=== PATIENT | female | born 1960 | race Caucasian/White ===

== ENCOUNTER 2020-09-24 15:22 | Inpatient (IN) | payer BC ==
[2020-09-24] MEDS ORDERED: Sodium Chloride 0.9% 1000 ML 1,000 ML ONE (15:36)
[2020-09-24] MEDS ORDERED: TYLENOL EXTRA STRENGTH 500 MG ONE (15:36)
[2020-09-24] MEDS: TYLENOL EXTRA STRENGTH 500 MG PO PRN ×2 (16:18→21:07)
[2020-09-24] MEDS: Sodium Chloride 0.9% 1000 ML 1,000 ML IV SCH ×2 (16:19→20:47)
[2020-09-24 16:33] LABS: Hematocrit 42.8 % (35-47); Hemoglobin 14.2 gm/dl (12.0-16.0); Mean Cell Volume 87.9 fl (78-100); Mean Corpuscular Hemoglobin 29.2 pg (26-32); Mean Corpuscular Hgb Concent. 33.2 g/dl (32-36); Mean Platelet Volume 11.4 fl (7.5-11.0); Platelet Count 58 K/mm3 (150-450); Red Blood Count 4.87 M/mm3 (4.1-5.4); Red Cell Distribution Width 13.7 % (11.5-14.0); White Blood Count 2.5 K/mm3 (4.0-10.5)
[2020-09-24 16:59] LABS: BAND 11 % (0.0-2.0); Lymphocytes 14 % (24-44); Monocyte 9 % (0.0-12.0); Neutrophils 66 % (36.0-66.0); Total Cells Counted 100
[2020-09-24 17:00] LABS: Platelet Estimate DECREASED (NORMAL)
[2020-09-24 17:01] LABS: Absolute Neutrophil Ct (ANC) 1.94 (1.4-6.9)
--- NOTE | 2020-09-24 17:05 | ERPHSYRPT ---
- History of Present Illness Time Seen by Provider: 09/24/20 15:50 Source: patient Exam Limitations: clinical condition Patient Subjective Stated Complaint: pt states she was dx with covid on sunday and she is now, weak,sob,and not eating well, fever at home, tylenol last at 0430 Triage Nursing Assessment: pt alert, weak, resp labored with movement, face mask in place, skin w/d/p. has dry cough Physician History: Patient is a 60-year-old white female who developed fever chills body aches on Sunday. She had some loss of taste and smell she also was diagnosed with Covid finally on Sunday. She presents now with feeling worse continued fever shortness of breath headache and body aches continue. Timing/Duration: day(s) (7) Fever Severity: severe Fever Therapy COMMUNICATIONS SPECIALIST: Acetaminophen Associated Symptoms: abdominal pain, cough, nausea/vomiting, shortness of breath Allergies/Adverse Reactions: No Known Drug Allergies Allergy (Verified 09/24/20 15:54) Home Medications: PHENobarbitaL [Phenobarbital] 1 ea TID 11/10/15 [History] Hx Tetanus, Diphtheria Vaccination/Date Given: Yes Hx Influenza Vaccination/Date Given: Yes Hx Pneumococcal Vaccination/Date Given: Yes Immunizations Up to Date: Yes Travel Risk - International Travel Have you traveled outside of the country in past 3 weeks: No - Coronavirus Screening Symptoms: Fever, Cough: New Onset, Shortness of Breath, Headaches/Body Aches/Fatigue - Vaccine Status Have you recieved a Covid-19 vaccination: No - Review of Systems Constitutional: Fever, Chills, Lethargy Eyes: No Symptoms Ears, Nose, & Throat: Nose Congestion Respiratory: Cough, Dyspnea, Dyspnea on Exertion ([place]), Wheezing Cardiac: No Symptoms Abdominal/Gastrointestinal: Abdominal Pain, Nausea, Vomiting Genitourinary Symptoms: No Symptoms Musculoskeletal: Back Pain, Neck Pain, Joint Pain Skin: No Symptoms Neurological: Dizziness, Headache Psychological: No Symptoms Endocrine: No Symptoms Hematologic/Lymphatic: No Symptoms - Past Medical History Pertinent Past Medical History: Yes Neurological History: Seizures Other Medical History: SEIZURES - Past Surgical History Past Surgical History: Yes Other Surgical History: MOLES REMOVED - Social History Smoking Status: Never smoker Exposure to second hand smoke: No Drug Use: none Patient Lives Alone: No - Female History Hx Last Menstrual Period: post - Nursing Vital Signs Nursing Vital Signs: Initial Vital Signs Temperature 101.1 F 09/24/20 15:34 Pulse Rate 103 H 09/24/20 15:34 Respiratory Rate 32 H 09/24/20 15:34 Blood Pressure 117/66 09/24/20 15:34 O2 Sat by Pulse Oximetry 95 09/24/20 15:34 Pain Scale Pain Intensity 4 - Physical Exam General Appearance: moderate distress, alert Eye Exam: PERRL/EOMI ENT Exam: normal ENT inspection, No pharyngeal erythema, No tonsillar exudate Neck Exam: supple, full range of motion, No meningismus Respiratory Exam: lungs clear, decreased breath sounds, respiratory distress, decreased air movement, crackles/rales Cardiovascular/Chest Exam: normal heart sounds, regular rate/rhythm, No murmur, No edema Gastrointestinal/Abdominal Exam: soft, non tender, no distention Extremity Exam: non-tender, normal range of motion, normal inspection, normal capillary refill Neurologic Exam: alert, oriented x 3, cooperative, tile helper II-XII nml as tested, normal mood/affect, sensation nml, No motor deficits Skin Exam: normal color, warm, dry, No rash SpO2: 94 - Course EKG Interpreted by Me: RATE (98), Sinus Rhythm, NORMAL AXIS, NORMAL INTERVALS, NORMAL QRS - CT Exams Chest CT Interpretation: Other (He shows no PE the evaluation is a little limited by respiratory artifact no obvious central PE diffuse bilateral patchy airspace disease small hiatal hernia and fatty liver by Dr. Arias.) Ordered Tests: Active Orders 24 hr Category Date Time Status EKG-ER Only STAT Care 09/24/20 15:59 Active IV Insertion STAT Care 09/24/20 15:59 Active CHEST WITH CONTRAST [CT] Stat Exams 09/24/20 17:46 Taken BLOOD CULTURE Stat Lab 09/24/20 16:16 Received CBC W DIFF Stat Lab 09/24/20 16:14 Completed CMP Stat Lab 09/24/20 16:14 Completed CULTURE,URINE Stat Lab 09/24/20 16:41 Received D-DIMER QUANTITATIVE Stat Lab 09/24/20 16:16 Completed Hepatic Function Panel Stat Lab 09/24/20 16:14 Completed Lactic Acid Stat Lab 09/24/20 15:59 Completed MAGNESIUM Stat Lab 09/24/20 16:14 Completed Manual Differential NC Stat Lab 09/24/20 16:14 Completed PROTIME WITH INR Stat Lab 09/24/20 16:16 Completed TROPONIN Q3H Lab 09/24/20 16:14 Completed TROPONIN Q3H Lab 09/24/20 19:00 Ordered TROPONIN Q3H Lab 09/24/20 22:00 Ordered TROPONIN Q3H Lab 09/25/20 01:00 Ordered TROPONIN Q3H Lab 09/25/20 04:00 Ordered UA W/RFX UR CULTURE Stat Lab 09/24/20 16:41 Completed Medication Summary Generic Name Dose Route Start Last Admin Trade Name Freq PRN Reason Stop Dose Admin Acetaminophen 1,000 mg 09/24/20 16:17 09/24/20 16:18 Tylenol Extra Strength 500 Mg PO 10/24/20 16:16 1,000 mg Q4H PRN PRN Administration HEADACHE Sodium Chloride 1,000 mls @ 100 mls/hr 09/24/20 16:00 09/24/20 16:19 Sodium Chloride 0.9% 1000 Ml IV 10/24/20 15:59 100 mls/hr .Q10H VALENTINE Administration Discontinued Medications Generic Name Dose Route Start Last Admin Trade Name Freq PRN Reason Stop Dose Admin Acetaminophen Confirm 09/24/20 15:36 Tylenol Extra Strength 500 Mg Administered 09/24/20 15:37 Dose 1,000 mg .ROUTE .STK-MED ONE Sodium Chloride Confirm 09/24/20 15:36 Sodium Chloride 0.9% 1000 Ml Administered 09/24/20 15:37 Dose 1,000 mls @ ud .ROUTE .STK-MED ONE Lab/Rad Data: Laboratory Result Diagrams 09/24/20 16:14 09/24/20 16:14 Laboratory Results 09/24/20 09/24/20 09/24/20 Range/Units 16:41 16:16 16:14 WBC (4.0-10.5) K/mm3 RBC (4.1-5.4) M/mm3 Hgb (12.0-16.0) gm/dl Hct (35-47) % MCV (78-100) fl MCH (26-32) pg MCHC (32-36) g/dl RDW (11.5-14.0) % Plt Count (150-450) K/mm3 MPV (7.5-11.0) fl Absolute Granulocytes (1.4-6.9) Segmented Neutrophils (36.0-66.0) % Band Neutrophils (0.0-2.0) % Lymphocytes (Manual) (24-44) % Monocytes (Manual) (0.0-12.0) % Platelet Estimate (NORMAL) RBC Morphology PT 14.7 H (9.4-12.5) SECONDS INR 1.25 (0.8-3.0) D-Dimer 944 H* (215-500) ng/mL Sodium (137-145) mmol/L Potassium (3.5-5.1) mmol/L Chloride (98-107) mmol/L Carbon Dioxide (22-30) mmol/L Anion Gap (5-15) MEQ/L BUN (7-17) mg/dL Creatinine (0.52-1.04) mg/dL Estimated GFR ML/MIN Glucose (74-106) mg/dL Lactic Acid (0.4-2.0) Calcium (8.4-10.2) mg/dL Magnesium (1.6-2.3) mg/dL Total Bilirubin (0.2-1.3) mg/dL Direct Bilirubin (0.0-0.4) mg/dL AST (14-36) U/L ALT (0-35) U/L Alkaline Phosphatase (38-126) U/L Troponin I < 0.012 (0.000-0.034) ng/mL Serum Total Protein (6.3-8.2) g/dL Albumin (3.5-5.0) g/dL Urine Color RIAZ (YELLOW) Urine Appearance CLOUDY (CLEAR) Urine pH 5.0 (5-6) Ur Specific [place] 1.030 (1.005-1.025) Urine Protein 100 (Negative) Urine Ketones SMALL (NEGATIVE) Urine Blood MODERATE (0-5) Emir/ul Urine Nitrite NEGATIVE (NEGATIVE) Urine Bilirubin NEGATIVE (NEGATIVE) Urine Urobilinogen 4 (0-1) mg/dL Ur Leukocyte Esterase NEGATIVE (NEGATIVE) Urine WBC (Auto) 3-5 (0-5) /HPF Urine RBC (Auto) NONE (0-2) /HPF U Hyaline Cast (Auto) 0-2 (0-2) /LPF U Epithel Cells (Auto) NONE (FEW) /HPF Urine Bacteria (Auto) MODERATE (NEGATIVE) /HPF Urine Mucus (Auto) MANY (NEGATIVE) /HPF Urine Culture Reflexed YES (NO) Urine Glucose NEGATIVE (NEGATIVE) mg/dL 09/24/20 09/24/20 09/24/20 Range/Units 16:14 16:14 15:59 WBC 2.5 L (4.0-10.5) K/mm3 RBC 4.87 (4.1-5.4) M/mm3 Hgb 14.2 (12.0-16.0) gm/dl Hct 42.8 (35-47) % MCV 87.9 (78-100) fl MCH 29.2 (26-32) pg MCHC 33.2 (32-36) g/dl RDW 13.7 (11.5-14.0) % Plt Count 58 L (150-450) K/mm3 MPV 11.4 H (7.5-11.0) fl Absolute Granulocytes 1.94 (1.4-6.9) Segmented Neutrophils 66 (36.0-66.0) % Band Neutrophils 11 H (0.0-2.0) % Lymphocytes (Manual) 14 L (24-44) % Monocytes (Manual) 9 (0.0-12.0) % Platelet Estimate DECREASED (NORMAL) RBC Morphology NORMAL PT (9.4-12.5) SECONDS INR (0.8-3.0) D-Dimer (215-500) ng/mL Sodium 130 L (137-145) mmol/L Potassium 3.6 (3.5-5.1) mmol/L Chloride 94 L (98-107) mmol/L Carbon Dioxide 23 (22-30) mmol/L Anion Gap 16.1 H (5-15) MEQ/L BUN 14 (7-17) mg/dL Creatinine 1.04 (0.52-1.04) mg/dL Estimated GFR 57.6 ML/MIN Glucose 128 H (74-106) mg/dL Lactic Acid 1.8 (0.4-2.0) Calcium 8.3 L (8.4-10.2) mg/dL Magnesium 2.2 (1.6-2.3) mg/dL Total Bilirubin 0.40 (0.2-1.3) mg/dL Direct Bilirubin 0.2 (0.0-0.4) mg/dL AST 58 H (14-36) U/L ALT 27 (0-35) U/L Alkaline Phosphatase 82 (38-126) U/L Troponin I (0.000-0.034) ng/mL Serum Total Protein 7.4 (6.3-8.2) g/dL Albumin 4.0 (3.5-5.0) g/dL Urine Color (YELLOW) Urine Appearance (CLEAR) Urine pH (5-6) Ur Specific [place] (1.005-1.025) Urine Protein (Negative) Urine Ketones (NEGATIVE) Urine Blood (0-5) Emir/ul Urine Nitrite (NEGATIVE) Urine Bilirubin (NEGATIVE) Urine Urobilinogen (0-1) mg/dL Ur Leukocyte Esterase (NEGATIVE) Urine WBC (Auto) (0-5) /HPF Urine RBC (Auto) (0-2) /HPF U Hyaline Cast (Auto) (0-2) /LPF U Epithel Cells (Auto) (FEW) /HPF Urine Bacteria (Auto) (NEGATIVE) /HPF Urine Mucus (Auto) (NEGATIVE) /HPF Urine Culture Reflexed (NO) Urine Glucose (NEGATIVE) mg/dL - Progress Progress: unchanged Will see patient in: hospital (full admit) - Departure Departure Disposition: In-patient Admission Clinical Impression: COVID-19 Condition: Fair Critical Care Time: Yes Critical Care Time(excluding separately billable procedures): Critical 30-74 mins Referrals: ANAI GE MD [Primary Care Provider] -
[2020-09-24 17:10] LABS: INR 1.25 (0.8-3.0); PROTIME 14.7 SECONDS (9.4-12.5)
[2020-09-24 17:18] LABS: ANION GAP 16.1 MEQ/L (5-15); BILIRUBIN,TOTAL 0.4 mg/dL (0.2-1.3); Calcium 8.3 mg/dL (8.4-10.2); Creatinine 1 1.04 mg/dL (0.52-1.04); Direct Bilirubin 0.2 mg/dL (0.0-0.4); EST GLOMERULAR FILTRATION RATE 57.6 ML/MIN; MAGNESIUM 2.2 mg/dL (1.6-2.3); Potassium 3.6 mmol/L (3.5-5.1); Total Protein 7.4 g/dL (6.3-8.2)
[2020-09-24 17:31] LABS: Appearance CLOUDY (CLEAR); Bacteria MODERATE /HPF (NEGATIVE); Bilirubin NEGATIVE (NEGATIVE); Blood MODERATE Ery/ul (0-5); Glucose NEGATIVE (NEGATIVE); Hyaline Casts 0-2 /LPF (0-2); Ketones SMALL (NEGATIVE); Leukocyte Esterase NEGATIVE (NEGATIVE); Mucus MANY /HPF (NEGATIVE); Nitrite NEGATIVE (NEGATIVE); Protein,Urine Dip 100 (Negative); Urobilinogen 4 mg/dL (0-1)
[2020-09-24] MEDS ORDERED: DECADRON 10MG INJ. ONE (20:44)
[2020-09-24] MEDS: Decadron 4 MG INJ IV SCH (20:45)
[2020-09-24] MEDS ORDERED: TYLENOL 325 MG ONE (21:05)
[2020-09-24 22:35] LABS: Appearance SLIGHTLY CLOUDY (CLEAR); Bacteria MODERATE /HPF (NEGATIVE); Bilirubin NEGATIVE (NEGATIVE); Blood SMALL Ery/ul (0-5); Glucose NEGATIVE (NEGATIVE); Ketones SMALL (NEGATIVE); Leukocyte Esterase NEGATIVE (NEGATIVE); Mucus SLIGHT /HPF (NEGATIVE); Nitrite POSITIVE (NEGATIVE); Protein,Urine Dip 100 (Negative); RBC 0-2 /HPF (0-2); Specific Gravity >1.060 (1.005-1.025); Urobilinogen 4 mg/dL (0-1); WBC 0-2 /HPF (0-5)
--- NOTE | 2020-09-24 22:39 | XRAY ---
Indication: Short of breath, cough, nausea, vomiting, diarrhea, and fever. Covid 19. Multiple contiguous axial images obtained through the chest using 100 cc Isovue-370 contrast and PE protocol. Comparison: None There is good opacification of the pulmonary arteries. However respiration artifact limits evaluation for distal lobar and segmental branches. No central pulmonary embolus. Heart is not enlarged. Aorta is normal in course and caliber. No pathologic mediastinal/hilar lymphadenopathy. Small hiatal hernia. Lungs demonstrate diffuse viral patchy airspace disease. No suspicious pulmonary mass, nodule, or effusion. Bony thorax is intact. Limited upper abdomen demonstrates fatty liver. Impression: 1. Pulmonary embolus evaluation limited by respiration artifact. No obvious central pulmonary embolus. 2. Diffuse bilateral patchy airspace disease. 3. Incidental small hiatal hernia and fatty liver.
[2020-09-25] MEDS ORDERED: TYLENOL EXTRA STRENGTH 500 MG ONE (05:56)
[2020-09-25] MEDS: TYLENOL EXTRA STRENGTH 500 MG PO PRN ×3 (05:57→21:54)
[2020-09-25 06:05] LABS: Hematocrit 38.6 % (35-47); Hemoglobin 12.7 gm/dl (12.0-16.0); Mean Cell Volume 88.7 fl (78-100); Mean Corpuscular Hemoglobin 29.2 pg (26-32); Mean Corpuscular Hgb Concent. 32.9 g/dl (32-36); Mean Platelet Volume 11.3 fl (7.5-11.0); Platelet Count 52 K/mm3 (150-450); Red Blood Count 4.35 M/mm3 (4.1-5.4); Red Cell Distribution Width 13.7 % (11.5-14.0)
[2020-09-25 06:51] LABS: ALBUMIN 3.6 g/dL (3.5-5.0); ALKALINE PHOSPHATASE 65 U/L (38-126); ANION GAP 15.2 MEQ/L (5-15); BLOOD UREA NITROGEN 11 mg/dL (7-17); CHLORIDE 98 mmol/L (98-107); Calcium 7.9 mg/dL (8.4-10.2); Carbon Dioxide 22 mmol/L (22-30); Creatinine 1 0.84 mg/dL (0.52-1.04); EST GLOMERULAR FILTRATION RATE > 60.0 ML/MIN; Glucose 119 mg/dL (74-106); Potassium 4.1 mmol/L (3.5-5.1); SGOT/AST 51 U/L (14-36); SGPT/ALT 25 U/L (0-35); SODIUM 131 mmol/L (137-145); Total Protein 6.7 g/dL (6.3-8.2)
[2020-09-25] MEDS ORDERED: Sodium Chloride 0.9% 1000 ML 1,000 ML ONE (07:15)
[2020-09-25] MEDS ORDERED: REMDESIVIR 200 MG in Sodium Chloride 0.9% 250 ML 250 ML IV ONE (07:36)
[2020-09-25] MEDS: Sodium Chloride 0.9% 1000 ML 1,000 ML IV SCH ×2 (08:04→21:10)
[2020-09-25] MEDS: Decadron 4 MG INJ IV SCH ×2 (09:35→21:09)
[2020-09-25] MEDS: ENOXAPARIN SODIUM SQ SCH ×2 (09:36→21:10)
[2020-09-25] MEDS ORDERED: PHENOBARBITAL PO SCH (10:00)
[2020-09-25] MEDS ORDERED: PHENOBARBITAL 32.4 MG PO SCH (10:00)
[2020-09-25] MEDS: ROCEPHIN 1 Gm-D5w 50 ml Bag** 1 G/50 ML IVPB IV SCH (10:30)
[2020-09-25] MEDS: Zithromax 500 MG/ 250 ML NaCl Premix 500 MG/250 ML IVPB IV SCH (11:00)
[2020-09-25] MEDS ORDERED: Zofran 4 MG/2 ML VIAL IV PRN (12:07)
[2020-09-25] MEDS: VENTOLIN COMMON CANISTER IH PRN (16:19)
--- NOTE | 2020-09-25 17:25 | PCM.HP ---
History of Present Illness - Chief Complaint Chief Complaint: COVID Date: 09/25/20 History of Present Illness: is a 60 year old female. Diagnosed with COVID Sunday, presented to ER with no appetite. Pt. notes fever of 103, and persistent diarrhea and mil d cough with sob on exertion. - Review of Systems Constitutional: Fever, Chills, Malaise Eyes: No Symptoms Ears, Nose, & Throat: No Symptoms Respiratory: Cough, Short Of Breath Cardiac: No Symptoms Abdominal/Gastrointestinal: Nausea, Diarrhea Genitourinary Symptoms: No Symptoms Musculoskeletal: No Symptoms, Arthralgias Skin: No Symptoms Neurological: No Symptoms Psychological: No Symptoms Endocrine: No Symptoms Hematologic/Lymphatic: No Symptoms Immunological/Allergic: No Symptoms Medications & Allergies Home Medications: Home Medication List PHENobarbitaL [Phenobarbital] 3 tab PO DAILY 11/10/15 [History Confirmed 09/25/20] Allergies/Adverse Reactions: Allergies Allergy/AdvReac Type Severity Reaction Status Date / Time No Known Drug Allergies Allergy Verified 09/24/20 15:54 - Past Medical History Past Medical History: Yes Neurological History: Seizures ENT History: No Pertinent History Cardiac History: No Pertinent History Respiratory History: No Pertinent History Endocrine Medical History: No Pertinent History Musculoskelatal History: No Pertinent History GI Medical History: No Pertinent History History: No Pertinent History Pyscho-Social History: No Pertinent History Reproductive Disorders: No Pertinent History Comment: SEIZURES-LAST SEIZURE YEARS AGO, PT DOES NOT REMEMBER THE YEAR - Female History Hx Last Menstrual Period: POST MENOPAUSE - Past Surgical History Past Surgical History: Yes Other Surgical History: MOLES REMOVED - Social History Smoking Status: Never smoker Exposure to second hand smoke: No Alcohol: None Drug Use: none - Physical Exam Vital Signs: Vital Signs - 24 hr Temp Pulse Resp BP Pulse Ox 09/25/20 16:28 100.8 F 09/25/20 16:21 91 H 24 92 L 09/25/20 15:54 102.5 F 95 H 26 H 119/66 92 L 09/25/20 14:00 94 H 26 H 92 L 09/25/20 11:49 99.4 F 96 H 20 122/66 90 L 09/25/20 10:52 91 L 09/25/20 10:00 85 18 91 L 09/25/20 08:00 99.1 F 87 23 112/64 91 L 09/25/20 06:44 99.7 F 09/25/20 06:00 101.3 F 90 20 109/65 91 L 09/25/20 04:00 99.0 F 89 18 115/67 92 L 09/25/20 02:00 99.2 F 86 20 118/68 91 L 09/25/20 00:00 99.3 F 82 18 115/66 92 L 09/24/20 22:00 18 09/24/20 21:36 101.3 F 91 H 18 114/52 93 L 09/24/20 21:15 99.5 F 88 18 106/59 92 L 09/24/20 20:37 93 L 09/24/20 20:33 86 18 93 L 09/24/20 19:55 88 92 L 09/24/20 19:03 89 24 117/67 95 09/24/20 18:51 94 L 09/24/20 17:21 93 H 23 107/65 92 L Oxygen-Last 24 hours Oxygen Flowrate (L/min)-RT 2 Oxygen Flowrate (L/min)-RT 2 General Appearance: no apparent distress Neurologic Exam: alert, cooperative Eye Exam: eyes nml inspection Ears, Nose, Throat Exam: normal ENT inspection Neck Exam: normal inspection, non-tender, supple Respiratory Exam: lungs clear, wheezing, No respiratory distress Cardiovascular Exam: regular rate/rhythm, normal heart sounds Gastrointestinal/Abdomen Exam: soft, normal bowel sounds, No tenderness, No distention, No guarding Pelvic Exam: not done Rectal Exam: deferred Extremity Exam: normal inspection, normal range of motion, pelvis stable Skin Exam: normal color, warm, dry, No rash, No petechiae Lymphatic Exam: No adenopathy Results - Labs Lab/Micro Results: Lab Results-Last 24 Hours 09/24/20 09/24/20 09/24/20 Range/Units 16:14 16:14 16:16 WBC (4.0-10.5) K/mm3 RBC (4.1-5.4) M/mm3 Hgb (12.0-16.0) gm/dl Hct (35-47) % MCV (78-100) fl MCH (26-32) pg MCHC (32-36) g/dl RDW (11.5-14.0) % Plt Count (150-450) K/mm3 MPV (7.5-11.0) fl PT 14.7 H (9.4-12.5) SECONDS INR 1.25 (0.8-3.0) D-Dimer 944 H* (215-500) ng/mL Sodium 130 L (137-145) mmol/L Potassium 3.6 (3.5-5.1) mmol/L Chloride 94 L (98-107) mmol/L Carbon Dioxide 23 (22-30) mmol/L Anion Gap 16.1 H (5-15) MEQ/L BUN 14 (7-17) mg/dL Creatinine 1.04 (0.52-1.04) mg/dL Estimated GFR 57.6 ML/MIN Glucose 128 H (74-106) mg/dL Lactic Acid (0.4-2.0) Calcium 8.3 L (8.4-10.2) mg/dL Magnesium 2.2 (1.6-2.3) mg/dL Total Bilirubin 0.40 (0.2-1.3) mg/dL Direct Bilirubin 0.2 (0.0-0.4) mg/dL AST 58 H (14-36) U/L ALT 27 (0-35) U/L Alkaline Phosphatase 82 (38-126) U/L Troponin I < 0.012 (0.000-0.034) ng/mL Serum Total Protein 7.4 (6.3-8.2) g/dL Albumin 4.0 (3.5-5.0) g/dL Urine Color (YELLOW) Urine Appearance (CLEAR) Urine pH (5-6) Ur Specific [place] (1.005-1.025) Urine Protein (Negative) Urine Ketones (NEGATIVE) Urine Blood (0-5) Emir/ul Urine Nitrite (NEGATIVE) Urine Bilirubin (NEGATIVE) Urine Urobilinogen (0-1) mg/dL Ur Leukocyte Esterase (NEGATIVE) Urine WBC (Auto) (0-5) /HPF Urine RBC (Auto) (0-2) /HPF U Hyaline Cast (Auto) (0-2) /LPF U Epithel Cells (Auto) (FEW) /HPF Urine Bacteria (Auto) (NEGATIVE) /HPF Urine Mucus (Auto) (NEGATIVE) /HPF Urine Culture Reflexed (NO) Urine Glucose (NEGATIVE) mg/dL 09/24/20 09/24/2009/24/21 Range/Units 16:41 18:58 19:55 WBC (4.0-10.5) K/mm3 RBC (4.1-5.4) M/mm3 Hgb (12.0-16.0) gm/dl Hct (35-47) % MCV (78-100) fl MCH (26-32) pg MCHC (32-36) g/dl RDW (11.5-14.0) % Plt Count (150-450) K/mm3 MPV (7.5-11.0) fl PT (9.4-12.5) SECONDS INR (0.8-3.0) D-Dimer (215-500) ng/mL Sodium (137-145) mmol/L Potassium (3.5-5.1) mmol/L Chloride (98-107) mmol/L Carbon Dioxide (22-30) mmol/L Anion Gap (5-15) MEQ/L BUN (7-17) mg/dL Creatinine (0.52-1.04) mg/dL Estimated GFR ML/MIN Glucose (74-106) mg/dL Lactic Acid (0.4-2.0) Calcium (8.4-10.2) mg/dL Magnesium (1.6-2.3) mg/dL Total Bilirubin (0.2-1.3) mg/dL Direct Bilirubin (0.0-0.4) mg/dL AST (14-36) U/L ALT (0-35) U/L Alkaline Phosphatase (38-126) U/L Troponin I < 0.012 (0.000-0.034) ng/mL Serum Total Protein (6.3-8.2) g/dL Albumin (3.5-5.0) g/dL Urine Color RIAZ YELLOW (YELLOW) Urine Appearance CLOUDY SLIGHTLY CLOUDY (CLEAR) Urine pH 5.0 5.0 (5-6) Ur Specific [place] 1.030 >1.060 (1.005-1.025) Urine Protein 100 100 (Negative) Urine Ketones SMALL SMALL (NEGATIVE) Urine Blood MODERATE SMALL (0-5) Emir/ul Urine Nitrite NEGATIVE POSITIVE (NEGATIVE) Urine Bilirubin NEGATIVE NEGATIVE (NEGATIVE) Urine Urobilinogen 4 4 (0-1) mg/dL Ur Leukocyte Esterase NEGATIVE NEGATIVE (NEGATIVE) Urine WBC (Auto) 3-5 0-2 (0-5) /HPF Urine RBC (Auto) NONE 0-2 (0-2) /HPF U Hyaline Cast (Auto) 0-2 (0-2) /LPF U Epithel Cells (Auto) NONE NONE (FEW) /HPF Urine Bacteria (Auto) MODERATE MODERATE (NEGATIVE) /HPF Urine Mucus (Auto) MANY SLIGHT (NEGATIVE) /HPF Urine Culture Reflexed YES ORDERED SEPARATELY (NO) Urine Glucose NEGATIVE NEGATIVE (NEGATIVE) mg/dL 09/24/20 09/25/20 09/25/20 Range/Units 21:48 05:50 05:50 WBC 2.0 L (4.0-10.5) K/mm3 RBC 4.35 (4.1-5.4) M/mm3 Hgb 12.7 (12.0-16.0) gm/dl Hct 38.6 (35-47) % MCV 88.7 (78-100) fl MCH 29.2 (26-32) pg MCHC 32.9 (32-36) g/dl RDW 13.7 (11.5-14.0) % Plt Count 52 L (150-450) K/mm3 MPV 11.3 H (7.5-11.0) fl PT (9.4-12.5) SECONDS INR (0.8-3.0) D-Dimer (215-500) ng/mL Sodium 131 L (137-145) mmol/L Potassium 4.1 (3.5-5.1) mmol/L Chloride 98 (98-107) mmol/L Carbon Dioxide 22 (22-30) mmol/L Anion Gap 15.2 H (5-15) MEQ/L BUN 11 (7-17) mg/dL Creatinine 0.84 (0.52-1.04) mg/dL Estimated GFR > 60.0 ML/MIN Glucose 119 H (74-106) mg/dL Lactic Acid (0.4-2.0) Calcium 7.9 L (8.4-10.2) mg/dL Magnesium (1.6-2.3) mg/dL Total Bilirubin 0.30 (0.2-1.3) mg/dL Direct Bilirubin (0.0-0.4) mg/dL AST 51 H (14-36) U/L ALT 25 (0-35) U/L Alkaline Phosphatase 65 (38-126) U/L Troponin I < 0.012 (0.000-0.034) ng/mL Serum Total Protein 6.7 (6.3-8.2) g/dL Albumin 3.6 (3.5-5.0) g/dL Urine Color (YELLOW) Urine Appearance (CLEAR) Urine pH (5-6) Ur Specific [place] (1.005-1.025) Urine Protein (Negative) Urine Ketones (NEGATIVE) Urine Blood (0-5) Emir/ul Urine Nitrite (NEGATIVE) Urine Bilirubin (NEGATIVE) Urine Urobilinogen (0-1) mg/dL Ur Leukocyte Esterase (NEGATIVE) Urine WBC (Auto) (0-5) /HPF Urine RBC (Auto) (0-2) /HPF U Hyaline Cast (Auto) (0-2) /LPF U Epithel Cells (Auto) (FEW) /HPF Urine Bacteria (Auto) (NEGATIVE) /HPF Urine Mucus (Auto) (NEGATIVE) /HPF Urine Culture Reflexed (NO) Urine Glucose (NEGATIVE) mg/dL 09/25/20 Range/Units 05:55 WBC (4.0-10.5) K/mm3 RBC (4.1-5.4) M/mm3 Hgb (12.0-16.0) gm/dl Hct (35-47) % MCV (78-100) fl MCH (26-32) pg MCHC (32-36) g/dl RDW (11.5-14.0) % Plt Count (150-450) K/mm3 MPV (7.5-11.0) fl PT (9.4-12.5) SECONDS INR (0.8-3.0) D-Dimer (215-500) ng/mL Sodium (137-145) mmol/L Potassium (3.5-5.1) mmol/L Chloride (98-107) mmol/L Carbon Dioxide (22-30) mmol/L Anion Gap (5-15) MEQ/L BUN (7-17) mg/dL Creatinine (0.52-1.04) mg/dL Estimated GFR ML/MIN Glucose (74-106) mg/dL Lactic Acid 1.4 (0.4-2.0) Calcium (8.4-10.2) mg/dL Magnesium (1.6-2.3) mg/dL Total Bilirubin (0.2-1.3) mg/dL Direct Bilirubin (0.0-0.4) mg/dL AST (14-36) U/L ALT (0-35) U/L Alkaline Phosphatase (38-126) U/L Troponin I (0.000-0.034) ng/mL Serum Total Protein (6.3-8.2) g/dL Albumin (3.5-5.0) g/dL Urine Color (YELLOW) Urine Appearance (CLEAR) Urine pH (5-6) Ur Specific [place] (1.005-1.025) Urine Protein (Negative) Urine Ketones (NEGATIVE) Urine Blood (0-5) Emir/ul Urine Nitrite (NEGATIVE) Urine Bilirubin (NEGATIVE) Urine Urobilinogen (0-1) mg/dL Ur Leukocyte Esterase (NEGATIVE) Urine WBC (Auto) (0-5) /HPF Urine RBC (Auto) (0-2) /HPF U Hyaline Cast (Auto) (0-2) /LPF U Epithel Cells (Auto) (FEW) /HPF Urine Bacteria (Auto) (NEGATIVE) /HPF Urine Mucus (Auto) (NEGATIVE) /HPF Urine Culture Reflexed (NO) Urine Glucose (NEGATIVE) mg/dL Microbiology 09/24/20 16:41 Urine Culture - Preliminary Catherized GRAM NEGATIVE ID AND SENSITIVITY PENDING - Radiology Impressions Radiology Exams & Impressions: Radiology Procedures Category Date Time Status CHEST 1 VIEW (PORTABLE) Routine Exams 09/25/20 07:00 Taken CHEST WITH CONTRAST [CT] Stat Exams 09/24/20 17:46 Completed - Other Procedures and Tests Respiratory Therapy 09/24/20 20:33 Respiratory Therapy Assessment DAILY 09/25/20 16:19 Oxygen Nasal Cannula 2 lpm Assessment/Plan (1) COVID-19 Current Visit: Yes Status: Acute Assessment & Plan: Pt. will be started on ivf, iv antibiotics, iv remdesivir, iv decadron, and lovenox. Oxygen supplementation as needed. Code(s): U07.1 - COVID-19
--- NOTE | 2020-09-25 20:13 | XRAY ---
Indication: Covid 19. Comparison: August 27, 2015. Portable chest demonstrates new bilateral patchy airspace disease without consolidation/large effusion. Heart not enlarged. Bony thorax intact. Comment: Preliminary interpretation was made by [facility]. No critical discrepancy.
[2020-09-25] MEDS: PHENOBARBITAL 32.4 MG PO SCH (21:10)
[2020-09-26] MEDS: Sodium Chloride 0.9% 1000 ML 1,000 ML IV SCH (06:02)
[2020-09-26 06:23] LABS: Hematocrit 36.8 % (35-47); Mean Cell Volume 89.3 fl (78-100); Mean Corpuscular Hemoglobin 29.1 pg (26-32); Mean Corpuscular Hgb Concent. 32.6 g/dl (32-36); Mean Platelet Volume 10.3 fl (7.5-11.0); Platelet Count 38 K/mm3 (150-450); Red Blood Count 4.12 M/mm3 (4.1-5.4); Red Cell Distribution Width 13.9 % (11.5-14.0)
[2020-09-26 06:30] LABS: ANION GAP 11.3 MEQ/L (5-15); BLOOD UREA NITROGEN 9 mg/dL (7-17); CHLORIDE 103 mmol/L (98-107); Calcium 7.7 mg/dL (8.4-10.2); Carbon Dioxide 22 mmol/L (22-30); Creatinine 1 0.67 mg/dL (0.52-1.04); EST GLOMERULAR FILTRATION RATE > 60.0 ML/MIN; Glucose 105 mg/dL (74-106); Potassium 3.9 mmol/L (3.5-5.1); SODIUM 133 mmol/L (137-145)
[2020-09-26 07:30] LABS: White Blood Count 1.7 K/mm3 (4.0-10.5)
[2020-09-26] MEDS: REMDESIVIR 100 MG in Sodium Chloride 0.9% 100 ML BAG 100 ML IV SCH (07:50)
[2020-09-26] MEDS: Decadron 4 MG INJ IV SCH ×2 (10:14→21:07)
[2020-09-26] MEDS: ROCEPHIN 1 Gm-D5w 50 ml Bag** 1 G/50 ML IVPB IV SCH (10:14)
[2020-09-26] MEDS: VENTOLIN COMMON CANISTER IH PRN ×2 (10:26→19:47)
[2020-09-26] MEDS: Zithromax 500 MG/ 250 ML NaCl Premix 500 MG/250 ML IVPB IV SCH (10:58)
[2020-09-26] MEDS ORDERED: Lasix 20 MG/2 ML IV ONE (11:14)
[2020-09-26 11:26] LABS: ANISOCYTOSIS 1+; BAND 1 % (0.0-2.0); Lymphocytes 35 % (24-44); Monocyte 6 % (0.0-12.0); Neutrophils 58 % (36.0-66.0); Platelet Estimate DECREASED (NORMAL); Total Cells Counted 100
[2020-09-26] MEDS: PHENOBARBITAL 32.4 MG PO SCH (21:07)
[2020-09-27 05:39] LABS: Hematocrit 37.6 % (35-47); Hemoglobin 12.1 gm/dl (12.0-16.0); Mean Cell Volume 89.3 fl (78-100); Mean Corpuscular Hemoglobin 28.7 pg (26-32); Mean Corpuscular Hgb Concent. 32.2 g/dl (32-36); Mean Platelet Volume 11.6 fl (7.5-11.0); Platelet Count 58 K/mm3 (150-450); Red Blood Count 4.21 M/mm3 (4.1-5.4)
[2020-09-27 05:44] LABS: White Blood Count 1.7 K/mm3 (4.0-10.5)
[2020-09-27 06:20] LABS: BLOOD UREA NITROGEN 11 mg/dL (7-17); CHLORIDE 99 mmol/L (98-107); Calcium 8.2 mg/dL (8.4-10.2); Carbon Dioxide 25 mmol/L (22-30); Creatinine 1 0.65 mg/dL (0.52-1.04); EST GLOMERULAR FILTRATION RATE > 60.0 ML/MIN; Glucose 123 mg/dL (74-106); Potassium 3.7 mmol/L (3.5-5.1); SODIUM 133 mmol/L (137-145)
[2020-09-27 06:47] LABS: Lymphocytes 24 % (24-44); Monocyte 28 % (0.0-12.0); Neutrophils 48 % (36.0-66.0); Total Cells Counted 100
[2020-09-27 06:48] LABS: Platelet Estimate NORMAL (NORMAL)
[2020-09-27] MEDS: REMDESIVIR 100 MG in Sodium Chloride 0.9% 100 ML BAG 100 ML IV SCH (08:23)
[2020-09-27] MEDS ORDERED: ENOXAPARIN SODIUM SQ SCH (10:00)
[2020-09-27] MEDS: ROCEPHIN 1 Gm-D5w 50 ml Bag** 1 G/50 ML IVPB IV SCH (11:22)
[2020-09-27] MEDS: Zithromax 500 MG/ 250 ML NaCl Premix 500 MG/250 ML IVPB IV SCH (11:22)
[2020-09-27] MEDS: ENOXAPARIN SODIUM SQ SCH (11:34)
[2020-09-27] MEDS: Decadron 4 MG INJ IV SCH (11:34)
[2020-09-27] MEDS: VENTOLIN COMMON CANISTER IH PRN ×2 (11:45→18:35)
[2020-09-27] MEDS: PHENOBARBITAL 32.4 MG PO SCH (21:02)
[2020-09-27] MEDS: DECADRON 10MG INJ. IV SCH (21:02)
[2020-09-28] MEDS: VENTOLIN COMMON CANISTER IH PRN ×5 (02:35→20:59)
[2020-09-28] MEDS: REMDESIVIR 100 MG in Sodium Chloride 0.9% 100 ML BAG 100 ML IV SCH (06:32)
[2020-09-28 08:51] LABS: Hematocrit 38.7 % (35-47); Hemoglobin 12.5 gm/dl (12.0-16.0); Mean Cell Volume 89.6 fl (78-100); Mean Corpuscular Hemoglobin 28.9 pg (26-32); Mean Corpuscular Hgb Concent. 32.3 g/dl (32-36); Mean Platelet Volume 11.2 fl (7.5-11.0); Platelet Count 81 K/mm3 (150-450); Red Blood Count 4.32 M/mm3 (4.1-5.4)
[2020-09-28 09:51] LABS: Lymphocytes 49 % (24-44); Monocyte 4 % (0.0-12.0); Neutrophils 47 % (36.0-66.0); Total Cells Counted 100
[2020-09-28 09:52] LABS: Platelet Estimate DECREASED (NORMAL)
[2020-09-28] MEDS: DECADRON 10MG INJ. IV SCH ×2 (10:01→21:13)
[2020-09-28] MEDS: ENOXAPARIN SODIUM SQ SCH (10:01)
[2020-09-28 10:15] LABS: ALBUMIN 3.5 g/dL (3.5-5.0); ALKALINE PHOSPHATASE 75 U/L (38-126); ANION GAP 11.3 MEQ/L (5-15); BLOOD UREA NITROGEN 8 mg/dL (7-17); CHLORIDE 98 mmol/L (98-107); Calcium 8.4 mg/dL (8.4-10.2); Carbon Dioxide 30 mmol/L (22-30); Creatinine 1 0.68 mg/dL (0.52-1.04); EST GLOMERULAR FILTRATION RATE > 60.0 ML/MIN; Glucose 93 mg/dL (74-106); Potassium 3.3 mmol/L (3.5-5.1); SGOT/AST 103 U/L (14-36); SGPT/ALT 55 U/L (0-35); SODIUM 136 mmol/L (137-145); Total Protein 6.6 g/dL (6.3-8.2)
[2020-09-28 13:08] LABS: Appearance CLEAR (CLEAR); Bacteria RARE /HPF (NEGATIVE); Bilirubin NEGATIVE (NEGATIVE); Blood NEGATIVE Ery/ul (0-5); Epithelial Cells RARE /HPF (FEW); Glucose NEGATIVE (NEGATIVE); Ketones NEGATIVE (NEGATIVE); Leukocyte Esterase NEGATIVE (NEGATIVE); Mucus SLIGHT /HPF (NEGATIVE); Nitrite NEGATIVE (NEGATIVE); Protein,Urine Dip NEGATIVE (Negative); Specific Gravity 1.008 (1.005-1.025); Urobilinogen NEGATIVE mg/dL (0-1); WBC 0-2 /HPF (0-5)
[2020-09-28] MEDS: PHENOBARBITAL 32.4 MG PO SCH (21:14)
[2020-09-29 05:36] LABS: Hematocrit 37.3 % (35-47); Hemoglobin 11.9 gm/dl (12.0-16.0); Mean Cell Volume 89.9 fl (78-100); Mean Corpuscular Hemoglobin 28.7 pg (26-32); Mean Corpuscular Hgb Concent. 31.9 g/dl (32-36); Mean Platelet Volume 11.2 fl (7.5-11.0); Platelet Count 98 K/mm3 (150-450); Red Blood Count 4.15 M/mm3 (4.1-5.4); White Blood Count 2.4 K/mm3 (4.0-10.5)
[2020-09-29 06:41] LABS: Lymphocytes 27 % (24-44); Monocyte 8 % (0.0-12.0); Neutrophils 65 % (36.0-66.0); Total Cells Counted 100
[2020-09-29 06:42] LABS: ANISOCYTOSIS 1+; Platelet Estimate DECREASED (NORMAL); Poikilocytosis 1+
[2020-09-29] MEDS: REMDESIVIR 100 MG in Sodium Chloride 0.9% 100 ML BAG 100 ML IV SCH (08:11)
[2020-09-29] MEDS: DECADRON 10MG INJ. IV SCH ×2 (09:27→21:12)
[2020-09-29] MEDS: ENOXAPARIN SODIUM SQ SCH (09:28)
[2020-09-29] MEDS ORDERED: Ativan 2 MG/1 ML VIAL ONE (10:36)
[2020-09-29] MEDS ORDERED: SODIUM CHLORIDE 0.9% IV ONE (10:45)
[2020-09-29] MEDS ORDERED: FOSPHENYTOIN SODIUM IV ONE (10:45)
[2020-09-29] MEDS ORDERED: Ativan 2 MG/1 ML VIAL IV PRN (11:02)
[2020-09-29] MEDS: Klor Con 10 MEQ PO SCH ×2 (11:31→21:12)
[2020-09-29] MEDS: Dilantin 100 MG PO SCH (11:31)
[2020-09-29] MEDS: VENTOLIN COMMON CANISTER IH PRN (18:25)
[2020-09-29] MEDS: PHENOBARBITAL 32.4 MG PO SCH (21:12)
[2020-09-30 05:28] LABS: Hematocrit 38.6 % (35-47); Hemoglobin 12.4 gm/dl (12.0-16.0); Mean Corpuscular Hemoglobin 29.2 pg (26-32); Mean Corpuscular Hgb Concent. 32.1 g/dl (32-36); Platelet Count 137 K/mm3 (150-450); Red Blood Count 4.24 M/mm3 (4.1-5.4); Red Cell Distribution Width 14.1 % (11.5-14.0); White Blood Count 3.5 K/mm3 (4.0-10.5)
[2020-09-30 05:45] LABS: ALBUMIN 3.4 g/dL (3.5-5.0); ALKALINE PHOSPHATASE 75 U/L (38-126); ANION GAP 11.4 MEQ/L (5-15); BLOOD UREA NITROGEN 8 mg/dL (7-17); CHLORIDE 98 mmol/L (98-107); Calcium 8.4 mg/dL (8.4-10.2); Carbon Dioxide 29 mmol/L (22-30); Creatinine 1 0.58 mg/dL (0.52-1.04); EST GLOMERULAR FILTRATION RATE > 60.0 ML/MIN; Glucose 115 mg/dL (74-106); Potassium 3.7 mmol/L (3.5-5.1); SGOT/AST 44 U/L (14-36); SGPT/ALT 40 U/L (0-35); SODIUM 135 mmol/L (137-145); Total Protein 6.4 g/dL (6.3-8.2)
[2020-09-30 09:40] LABS: Slide Review YES
[2020-09-30] MEDS: Dilantin 100 MG PO SCH ×2 (10:21→10:51)
[2020-09-30] MEDS: Klor Con 10 MEQ PO SCH ×2 (10:21→21:06)
[2020-09-30] MEDS: DECADRON 10MG INJ. IV SCH ×2 (10:21→21:06)
[2020-09-30] MEDS: ENOXAPARIN SODIUM SQ SCH (10:22)
[2020-09-30] MEDS: VENTOLIN COMMON CANISTER IH PRN ×2 (10:35→19:50)
--- NOTE | 2020-09-30 10:47 | XRAY ---
Indication: Short of breath. Positive Covid 19. Comparison: September 25, 2020. Portable chest demonstrates worsening moderate diffuse bilateral patchy airspace disease again without consolidation/large effusion. Heart not enlarged.
[2020-09-30] MEDS: PHENOBARBITAL 32.4 MG PO SCH (21:06)
[2020-10-01 05:08] LABS: Hemoglobin 12.6 gm/dl (12.0-16.0); Mean Cell Volume 90.7 fl (78-100); Mean Corpuscular Hemoglobin 28.6 pg (26-32); Mean Corpuscular Hgb Concent. 31.5 g/dl (32-36); Mean Platelet Volume 11.2 fl (7.5-11.0); Platelet Count 163 K/mm3 (150-450); Red Blood Count 4.41 M/mm3 (4.1-5.4); Red Cell Distribution Width 13.9 % (11.5-14.0)
[2020-10-01 05:23] LABS: ALBUMIN 3.6 g/dL (3.5-5.0); ALKALINE PHOSPHATASE 77 U/L (38-126); ANION GAP 11.9 MEQ/L (5-15); BLOOD UREA NITROGEN 8 mg/dL (7-17); CHLORIDE 96 mmol/L (98-107); Calcium 8.8 mg/dL (8.4-10.2); Carbon Dioxide 30 mmol/L (22-30); Creatinine 1 0.73 mg/dL (0.52-1.04); EST GLOMERULAR FILTRATION RATE > 60.0 ML/MIN; Glucose 114 mg/dL (74-106); Potassium 3.9 mmol/L (3.5-5.1); SGOT/AST 34 U/L (14-36); SGPT/ALT 34 U/L (0-35); SODIUM 134 mmol/L (137-145); Total Protein 6.8 g/dL (6.3-8.2)
[2020-10-01 06:41] LABS: Slide Review YES
--- NOTE | 2020-10-01 09:34 | XRAY ---
Indication: Short of breath. Positive Covid 19. Elevated d-dimer. Comparison: September 30, 2020. Portable chest unchanged again demonstrating moderate diffuse bilateral patchy airspace disease without consolidation/large effusion. Heart not enlarged. No new cardiopulmonary abnormalities.
[2020-10-01] MEDS: ENOXAPARIN SODIUM SQ SCH (09:41)
[2020-10-01] MEDS: Dilantin 100 MG PO SCH (09:42)
[2020-10-01] MEDS: Klor Con 10 MEQ PO SCH ×2 (09:42→22:01)
[2020-10-01] MEDS ORDERED: Lasix 20 MG/2 ML IV ONE (10:00)
[2020-10-01] MEDS: solu-MEDROL 125 MG IV SCH ×2 (10:01→22:02)
--- NOTE | 2020-10-01 10:27 | PROG NOTE ---
HOSPITAL COURSE: The patient is a 60 year-old white female who was admitted on 09/24/2020 with hypoxia from COVID. She has bilateral COVID pneumonia, fever and chills the day before. She and her had been in [place] and they think that is where they got it as they do not know anyone who has it here and it has been four or five days since they were there and very, very crowded. She is not a smoker. No history of lung disease. She has epilepsy and is on phenobarbital. She has not had a seizure in many years. Dr. Grider is her neurologist. She came in with a temperature of 101F. The temperature has come down on steroids progressively as the disease has gone on. Her regular doctor is Dr. Jose Sahu. The last few days her oxygen levels gradually increased up to 5 liters. Two days ago she had a grand mal seizure which I witnessed that lasted for perhaps 45 seconds. Within a minute she was alert and orientated, mildly postictal. We have given her 1,000 mg of Dilantin and checked a phenobarbital level which was therapeutic. Right now she is on Dilantin and Phenobarbital and has had no seizures. She finished her Remdesivir series yesterday. She is on Decadron. She is anticoagulated. Her temperature is down. Blood pressure is okay. O2 saturations are running in the 90's but only with 5 liters. Heart rate in the 80's to 100's. She fatigues very easily when she gets out of a chair. PHYSICAL EXAMINATION: On examination she is alert, orientated, pleasant person in no distress. She said she slept well. She said she had no GI problems and she is coughing up a little bit. CHEST: Wheezing bilateral. CVS: Regular rate. ABDOMEN: Obese. No masses or organomegaly. EXTREMITIES: No cyanosis, swelling or edema. LAB DATA AND TESTS: New labs: The patient's D-dimer went up from 500 to 747. Dilantin level was 6.0 which is subtherapeutic. Glucose 114. Electrolytes are basically normal. Phenobarbital level was 20 which is therapeutic. White count was 3.5, hemoglobin 12, PLT count 137,000 today. She had some leukopenia and thrombocytopenia but that has corrected pretty well. She has no history of that she said and hopes it is from the virus. The white count has been low as 1.7 and platelets have dropped down to about 100,000 at one point. IMPRESSION: The patient has: 1) COVID pneumonia. Her oxygen level has increased some. Respiratory distress due to COVID pneumonia. 2) History of grand mal seizures having one recently. PLAN: 1) At this point we are going to change her steroid to methylprednisolone at 2 mg/kg which this might be slightly better in people with severe COVID. 2) The pharmacist is giving some bamlanivimab IV ID antibodies and they have another antibody which we will both give. Again the patient deteriorating despite maximum treatment and we read that these perhaps do help normal serum, never used in the past has not been effective I guess. She is still holding her own. 3) Chest x-ray is pending from this morning. PROGNOSIS: Guarded. I explained to her that we increased the oxygen different ways and at this point she is holding her own.
[2020-10-01] MEDS: VENTOLIN COMMON CANISTER IH SCH ×3 (11:21→19:40)
[2020-10-01] MEDS: CLARITIN 10 MG PO SCH (13:32)
[2020-10-01] MEDS: PHENOBARBITAL 32.4 MG PO SCH (22:01)
[2020-10-02 05:46] LABS: Hematocrit 39.5 % (35-47); Hemoglobin 12.7 gm/dl (12.0-16.0); Mean Cell Volume 90.4 fl (78-100); Mean Corpuscular Hemoglobin 29.1 pg (26-32); Mean Corpuscular Hgb Concent. 32.2 g/dl (32-36); Mean Platelet Volume 11.3 fl (7.5-11.0); Platelet Count 220 K/mm3 (150-450); Red Blood Count 4.37 M/mm3 (4.1-5.4); Red Cell Distribution Width 14.2 % (11.5-14.0); White Blood Count 4.8 K/mm3 (4.0-10.5)
[2020-10-02 06:13] LABS: ALBUMIN 3.6 g/dL (3.5-5.0); ALKALINE PHOSPHATASE 78 U/L (38-126); ANION GAP 12.9 MEQ/L (5-15); BLOOD UREA NITROGEN 11 mg/dL (7-17); CHLORIDE 97 mmol/L (98-107); Calcium 8.8 mg/dL (8.4-10.2); Carbon Dioxide 28 mmol/L (22-30); Creatinine 1 0.67 mg/dL (0.52-1.04); EST GLOMERULAR FILTRATION RATE > 60.0 ML/MIN; Glucose 137 mg/dL (74-106); Potassium 4.2 mmol/L (3.5-5.1); SGOT/AST 30 U/L (14-36); SGPT/ALT 30 U/L (0-35); SODIUM 133 mmol/L (137-145)
[2020-10-02 07:52] LABS: Lymphocytes 17 % (24-44); Monocyte 2 % (0.0-12.0); Neutrophils 81 % (36.0-66.0); Platelet Estimate NORMAL (NORMAL); Total Cells Counted 100
[2020-10-02] MEDS: VENTOLIN COMMON CANISTER IH SCH ×4 (07:55→20:25)
[2020-10-02] MEDS: solu-MEDROL 125 MG IV SCH ×2 (09:55→21:01)
[2020-10-02] MEDS: CLARITIN 10 MG PO SCH (09:55)
[2020-10-02] MEDS: ENOXAPARIN SODIUM SQ SCH (09:56)
[2020-10-02] MEDS: Klor Con 10 MEQ PO SCH ×2 (09:56→21:01)
[2020-10-02] MEDS: Dilantin 100 MG PO SCH (09:56)
[2020-10-02] MEDS: PHENOBARBITAL 32.4 MG PO SCH (21:01)
[2020-10-02] MEDS: Tums EX 750 MG PO PRN (22:20)
[2020-10-03 06:09] LABS: Hematocrit 38.4 % (35-47); Hemoglobin 12.1 gm/dl (12.0-16.0); Mean Corpuscular Hemoglobin 28.7 pg (26-32); Mean Corpuscular Hgb Concent. 31.5 g/dl (32-36); Mean Platelet Volume 11.3 fl (7.5-11.0); Platelet Count 232 K/mm3 (150-450); Red Blood Count 4.22 M/mm3 (4.1-5.4); Red Cell Distribution Width 14.1 % (11.5-14.0); White Blood Count 4.9 K/mm3 (4.0-10.5)
[2020-10-03 06:34] LABS: ALBUMIN 3.4 g/dL (3.5-5.0); ALKALINE PHOSPHATASE 72 U/L (38-126); ANION GAP 19.5 MEQ/L (5-15); BLOOD UREA NITROGEN 14 mg/dL (7-17); CHLORIDE 98 mmol/L (98-107); Calcium 8.9 mg/dL (8.4-10.2); Carbon Dioxide 28 mmol/L (22-30); Creatinine 1 0.67 mg/dL (0.52-1.04); EST GLOMERULAR FILTRATION RATE > 60.0 ML/MIN; Glucose 121 mg/dL (74-106); Potassium 4.1 mmol/L (3.5-5.1); SGOT/AST 26 U/L (14-36); SGPT/ALT 26 U/L (0-35); SODIUM 142 mmol/L (137-145); Total Protein 6.6 g/dL (6.3-8.2)
[2020-10-03 06:41] LABS: Lymphocytes 9 % (24-44); Monocyte 9 % (0.0-12.0); Neutrophils 82 % (36.0-66.0); Platelet Estimate NORMAL (NORMAL); Total Cells Counted 100
[2020-10-03] MEDS: VENTOLIN COMMON CANISTER IH SCH ×4 (07:40→19:45)
[2020-10-03] MEDS: Klor Con 10 MEQ PO SCH ×2 (09:54→21:29)
[2020-10-03] MEDS: solu-MEDROL 125 MG IV SCH ×2 (09:54→21:29)
[2020-10-03] MEDS: Dilantin 100 MG PO SCH (09:54)
[2020-10-03] MEDS: ENOXAPARIN SODIUM SQ SCH (09:55)
[2020-10-03] MEDS: CLARITIN 10 MG PO SCH (09:55)
[2020-10-03] MEDS: Tums EX 750 MG PO PRN (16:39)
[2020-10-03] MEDS: PHENOBARBITAL 32.4 MG PO SCH (21:29)
[2020-10-04 05:18] LABS: Hematocrit 37.5 % (35-47); Hemoglobin 11.7 gm/dl (12.0-16.0); Mean Cell Volume 91.9 fl (78-100); Mean Corpuscular Hemoglobin 28.7 pg (26-32); Mean Corpuscular Hgb Concent. 31.2 g/dl (32-36); Mean Platelet Volume 11.2 fl (7.5-11.0); Platelet Count 240 K/mm3 (150-450); Red Blood Count 4.08 M/mm3 (4.1-5.4); Red Cell Distribution Width 14.1 % (11.5-14.0); White Blood Count 4.9 K/mm3 (4.0-10.5)
[2020-10-04] MEDS: VENTOLIN COMMON CANISTER IH SCH ×4 (07:09→18:45)
[2020-10-04] MEDS: Dilantin 100 MG PO SCH (09:25)
[2020-10-04] MEDS: Klor Con 10 MEQ PO SCH ×2 (09:26→21:40)
[2020-10-04] MEDS: CLARITIN 10 MG PO SCH (09:26)
[2020-10-04] MEDS: ENOXAPARIN SODIUM SQ SCH (09:26)
[2020-10-04] MEDS: solu-MEDROL 125 MG IV SCH ×2 (09:26→21:40)
[2020-10-04 11:33] LABS: Lymphocytes 17 % (24-44); Monocyte 1 % (0.0-12.0); Neutrophils 82 % (36.0-66.0); Platelet Estimate NORMAL (NORMAL); Total Cells Counted 100
[2020-10-04] MEDS: PHENOBARBITAL 32.4 MG PO SCH (21:40)
[2020-10-05] MEDS: Tums EX 750 MG PO PRN (03:20)
[2020-10-05 05:40] LABS: Hematocrit 37.4 % (35-47); Hemoglobin 11.6 gm/dl (12.0-16.0); Mean Cell Volume 91.9 fl (78-100); Mean Corpuscular Hemoglobin 28.5 pg (26-32); Mean Platelet Volume 11.4 fl (7.5-11.0); Platelet Count 242 K/mm3 (150-450); Red Blood Count 4.07 M/mm3 (4.1-5.4); Red Cell Distribution Width 14.3 % (11.5-14.0); White Blood Count 4.8 K/mm3 (4.0-10.5)
[2020-10-05 06:36] LABS: Lymphocytes 14 % (24-44); Monocyte 10 % (0.0-12.0); Neutrophils 76 % (36.0-66.0); Total Cells Counted 100
[2020-10-05 06:37] LABS: ANISOCYTOSIS 1+; Platelet Estimate NORMAL (NORMAL); Poikilocytosis 1+
[2020-10-05] MEDS: VENTOLIN COMMON CANISTER IH SCH ×2 (07:19→11:11)
[2020-10-05] MEDS: Klor Con 10 MEQ PO SCH (10:21)
[2020-10-05] MEDS: ENOXAPARIN SODIUM SQ SCH (10:22)
[2020-10-05] MEDS: Dilantin 100 MG PO SCH (10:22)
[2020-10-05] MEDS: solu-MEDROL 125 MG IV SCH (10:22)
[2020-10-05] MEDS: CLARITIN 10 MG PO SCH (10:22)
--- NOTE | 2020-10-05 10:39 | DS ---
ADMISSION DIAGNOSES: 1) COVID pneumonia. 2) Epilepsy. DISCHARGE DIAGNOSES: 1) COVID PNEUMONIA. 2) EPILEPSY. 3) GRAND MAL SEIZURE. HOSPITAL COURSE: The patient's home medicines were continued the same except she will take Dilantin 300 mg q.d. plus her phenobarbital. She will be on oxygen 3 liters by cannula. She will follow up with Dr. Sahu in two weeks and continue isolation for another week although she has been isolated here for quite a while. She was quite ill and sometimes those people stay contagious longer. She had leukopenia. However now her white count is up to 4.8 and platelets have recovered to 242,000. It took ten days for it to come up from low levels. Her last D-dimer was on 10/03/2020 and was down to 470 which is normal, some of that is inflammation. Blood sugar was 120 last one. Her chest x-ray and CT showed bilateral fluffy infiltrates typical for COVID. The white count was a low at 1,000. Her PLT count was low at 52,000. While she was here her was also admitted with COVID and she has an adult son at home who has COVID and is pretty sick. The last chest x-ray on 10/01/2020 showed moderate diffuse bilateral patchy airspace disease without consolidation, heart not enlarged. CT was done when she deteriorated to make sure that she did not have a pulmonary embolism and was negative. She did have a grand mal seizure. However, she has underlying epilepsy. She has had no seizures for five to ten years. She has been on phenobarbital and is followed by Dr. Grider, Neurologist in [place]. She is to continue Dilantin until this disease is over and get his agreement as to when to stop the Dilantin or to continue it after she sees him. I think she already has an appointment. She has had an amazing day. Her spirits are good. She walked to the bathroom without assistance. She has had no GI problems. Her chest is clear. Heart sounds are regular. Discharge summary as above. PROGNOSIS: Good.
[2020-10-05 12:40] VITALS: BP 129/83; PULSE 96; O2SAT 93
== END 2020-10-05 14:10 | disposition home or self-care (01) | DRG 179 ==
LOC: ED 15:22 → MED SURG 19:46
PROVIDERS: ADMIT Family Medicine; ATTEND Family Medicine
DX: U07.1 COVID-19 (principal); J12.82 Pneumonia due to coronavirus disease 2019; G40.909 Epilepsy, unspecified, not intractable, without status epilepticus; G40.409 Other generalized epilepsy and epileptic syndromes, not intractable, without status epilepticus; R09.02 Hypoxemia; Z79.899 Other long term (current) drug therapy
CPT/HCPCS: 36000; 36415; 71045; 71260; 80048; 80053; 80076; 80184; 80185; 81001; 82947; 83605; 83735; 84484; 85025; 85027; 85379; 85610; 87040; 87077; 87086; 87186; 93005; 94640; 94762; 96360; 96361; 99284; 99291; J0456; J0696; J1100; J1650; J1940; J2060; J2405; J2930; P9612; Q2009; A9270-GY

== ENCOUNTER 2021-10-18 09:57 | Day surgery (SDC) | payer BC ==
[2021-10-18] MEDS ORDERED: Lactated Ringers 1,000 ML IV ONE (10:57)
[2021-10-18] MEDS ORDERED: CEFAZOLIN 2 GM-D5W BAG** 2 GM/50 ML ML IV SCH (11:00)
[2021-10-18] MEDS ORDERED: Lactated Ringers 1,000 ML IV SCH (11:00)
[2021-10-18] MEDS ORDERED: CEFAZOLIN 2 GM-D5W BAG** 2 GM/50 ML ML IV ONE (11:05)
[2021-10-18 12:23] LABS: ALBUMIN 3.9 g/dL (3.5-5.0); ALKALINE PHOSPHATASE 136 U/L (38-126); ANION GAP 10.4 MEQ/L (5-15); BLOOD UREA NITROGEN 16 mg/dL (7-17); CHLORIDE 104 mmol/L (98-107); Calcium 9.4 mg/dL (8.4-10.2); Carbon Dioxide 28 mmol/L (22-30); Creatinine 1 0.74 mg/dL (0.52-1.04); EST GLOMERULAR FILTRATION RATE > 60.0 ML/MIN; Glucose 89 mg/dL (74-106); SGOT/AST 33 U/L (14-36); SGPT/ALT 20 U/L (0-35); SODIUM 138 mmol/L (137-145); Total Protein 7.5 g/dL (6.3-8.2)
[2021-10-18] MEDS ORDERED: DIPRIVAN 200 MG/20 ML IV ONE (12:26)
[2021-10-18] MEDS ORDERED: Xylocaine-Mpf 2% 5 Ml Vial ONE ×2 (12:26→16:08)
[2021-10-18] MEDS ORDERED: Decadron 4 MG INJ ONE ×2 (12:26→16:08)
[2021-10-18] MEDS ORDERED: Zofran 4 MG/2 ML VIAL ONE (12:26)
[2021-10-18] MEDS ORDERED: BRIDION 200MG/2ML IV ONE (12:26)
[2021-10-18] MEDS ORDERED: SUBLIMAZE 100 MCG/2 ML ONE ×2 (12:26→17:10)
[2021-10-18] MEDS ORDERED: TORAdol 30 mg Injection ONE (12:26)
[2021-10-18] MEDS ORDERED: Zemuron 100 MG/10 ML ONE (12:26)
[2021-10-18] MEDS ORDERED: Marcaine 0.5%/Epinephrine 10 ML ONE (16:08)
[2021-10-18] MEDS ORDERED: DEXMEDETOMIDINE 80 MCG/20ML-NS IV ONE (17:25)
[2021-10-18] MEDS ORDERED: MORPHINE SULFATE 2 MG INJ ONE (17:30)
[2021-10-18] MEDS ORDERED: NORCO 7.5/325 MG TAB PO PRN (18:04)
[2021-10-18 20:17] LABS: INFLUENZA A NEGATIVE (NEGATIVE); INFLUENZA B NEGATIVE (NEGATIVE); RESPIRATORY SYNCTIAL VIRUS NEGATIVE (Negative); SARS-CoV-2 Xpert Express NEGATIVE (NEGATIVE)
[2021-10-19] MEDS ORDERED: NON-FORMULARY ITEM (Albuterol Sulfate [Proair Respiclick] 90 MCG Aer.Pow.Ba) IH PRN (07:09)
[2021-10-19] MEDS ORDERED: VENTOLIN COMMON CANISTER IH PRN (07:11)
[2021-10-19] MEDS ORDERED: KEFLEX 500 MG PO SCH (08:00)
--- NOTE | 2021-10-19 08:50 | XRAY ---
2 minutes and 32 seconds fluoroscopy time in surgery for arthrodesis of the left foot.
--- NOTE | 2021-10-19 08:53 | OP ---
SURGERY DATE/TIME: 10/18/2021 1234 PREOPERATIVE DIAGNOSES: 1) Delayed presentation Lisfranc fracture-dislocation left foot. 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 4) Gastrocnemius equinus. 5) Left foot pain. POSTOPERATIVE DIAGNOSES: 1) Delayed presentation Lisfranc fracture-dislocation left foot. 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 4) Gastrocnemius equinus. 5) Left foot pain. PROCEDURES: 1) Gastrocnemius resection. 2) First, second and third tarsometatarsal joint arthrodesis. 3) Intercuneiform arthrodesis, left foot. SURGEON: Bryan Butler DPM. TRAILER TANK TRUCK DRIVER: None. ANESTHESIA: General plus postoperative regional block. See anesthesia report for details. HEMOSTASIS: Thigh tourniquet set 350 mm of Mercury for 120 total tourniquet minutes. ESTIMATED BLOOD LOSS: Less than 30 cc. MATERIALS: 2-0 Vicryl, 3-0 Nylon, two - 3.5 inline fusion plates from [employer], two - 2.5 inline fusion plates and a 4.0 x 34 fully threaded cannulated screw with 2 cc of StrataGraft Plus. INJECTABLES: See anesthesia report for details. INDICATION FOR SURGERY: Kaye is a very pleasant 61-year-old female patient who presented to my clinic with complaints of pain to the left lower extremity that has been ongoing for a number of years. The patient suffered a Lisfranc fracture-dislocation that was missed approximately nine years ago. Ever since then she has had slowly degenerative changes to her tarsometatarsal joints and splaying of her foot as her arch collapses. At this time, the patient has an immense amount of pain with ambulation and would like to proceed with surgical intervention in order to address this issue. In these cases, delayed presentation of Lisfranc fractures will not cosmetically look as good as it potentially could. However, goal is to reduce pain and increase function. The patient understands this. The patient understands all risks, benefits and complications of surgical intervention including but not limited to delayed skin healing, nonskin healing, possibility of delayed bone healing and nonbone healing, possibility of prominent hardware which causes irritation and possibility of need for surgical intervention at a later date. No guarantees were provided as to the outcome of surgical intervention. At this time the patient wishes to proceed with surgical intervention and it is with that we decided to proceed. DESCRIPTION OF PROCEDURE AND FINDINGS: The patient was brought into the OR and placed on the OR table in the supine position. At this time a well-padded thigh tourniquet was applied to the patient's left lower extremity and the tourniquet was set to 350 mm of Mercury. At this time the left lower extremity was prepped and draped in the typical sterile fashion and lowered onto the surgical field. Attention was directed to the posterior medial aspect of the left calf where a marking pen was utilized to rosanne out the palpable dell between the gastrocnemius muscle belly and the tendon. Incision was made approximately 5 cm in length using blunt dissection to carry down to the layer of the crural fascia. The crural fascia was incised utilizing a 15 blade and the gastrocnemius aponeurosis was identified. At this time a 10 blade was utilized to incise the gastrocnemius aponeurosis and carried out from medial to lateral aspect being careful not to damage the sural nerve. Following this, copious amounts of sterile saline were utilized to flush the surgical site. A 2-0 Vicryl was then utilized to coapt the subcutaneous skin edges under minimal tension and a 3-0 Nylon was utilized in a horizontal mattress-type fashion to coapt the surgical site. At this time the Esmarch was utilized to exsanguinate the leg and the tourniquet was inflated. Attention was directed to the dorsal aspect of the second and third tarsometatarsal joints where a linear incision was made directly over the second and third metatarsal interval, this incision was deepened being careful not to damage any neurovascular structures along the way using a combination of blunt and sharp dissection. At this time the site was identified and easily disarticulated due to the fact that there had been a Lisfranc fracture for a long time. Joints needed no soft tissue release in order to expose the second and third tarsometatarsal joint. Cartilage was removed that was remaining of the tarsometatarsal joint. At this time an incision was also made with a 5 cm skin bridge between the two incisions at the dorsal medial aspect of the first tarsometatarsal joint where this incision was once again carried down utilizing a combination of sharp and blunt dissection in order to encounter the first tarsometatarsal joint. Following this, all joints were prepped in similar fashion utilizing a combination of curved osteotomes, curettes and rongeurs until the cartilage was no longer present on the joint surface. Copious amounts of sterile saline were utilized to flush the site. A 2 mm drill was then utilized to fenestrate the bone surfaces and an osteotome and rongeur were utilized to further expose the layer beneath the subchondral plate for adequate fusion. 2 cc off Strata[employer]raft Plus was utilized to pack the site. Following this, the intercuneiforms were prepped in a similar fashion. Graft was placed and a tenaculum was placed over the medial to the lateral cuneiform providing compression and a 4.0 x 34 mm fully threaded screw was introduced in order to gain compression through this joint. Following this, a 2.5 mm inline fusion plate was placed over the third and second tarsometatarsal joints in order to fuse these joints. A threaded BB tack was utilized to gain compression as the plate was applied and with the engagement of the eccentric screw, the BB tack was removed and compression was completed through this site. This was checked under fluoroscopic guidance and deemed to be adequate on the medial oblique view as well as the AP view as well as lateral. The first tarsometatarsal joint was then fused utilizing two - 3.5 inline fusion plates in a 90-90 configuration. Following the placement of the plates and adequate compression was applied through the site, a 36 mm screw was introduced from the first to second metatarsal in order to prevent gapping of the tarsometatarsal joints once again. Following this, final shots were taken of the left lower extremity which were deemed to be adequate. Copious amounts of sterile saline were utilized to flush the surgical site. 2-0 Vicryl was utilized to coapt the incisions and 3-0 Nylon utilized in a horizontal mattress-type fashion to coapt the surgical skin edges in a horizontal mattress-type fashion. A dressing consisting of Betadine, Adaptic, 4x4, Kerlix and a well-padded posterior splint was applied to the patient's left lower extremity with the foot orthogonal relative to the longitudinal axis of the leg. Following this, the patient was provided a regional block, see anesthesia report for details. The patient was then returned to the postoperative anesthesia care unit with vital signs stable and vascular status intact. The patient handled the anesthesia as well as the procedure without significant complication. Postoperative orders as indicated in the patient's discharge chart.
[2021-10-19 09:00] VITALS: BP 107/58; PULSE 88; O2SAT 94
[2021-10-19] MEDS ORDERED: PHENOBARBITAL 32.4 MG PO SCH (10:00)
[2021-10-19] MEDS ORDERED: KEPPRA PO SCH (10:00)
[2021-10-19] MEDS ORDERED: PHENOBARBITAL 64.8 MG PO SCH (10:00)
[2021-10-19] MEDS ORDERED: Ecotrin 325 MG PO SCH (10:00)
--- NOTE | 2021-10-19 10:21 | XRAY ---
Indication: Left foot 1st/2nd/3rd metatarsal and cuneiform arthrodesis. Intraoperative fluoroscopy provided for 2 minutes 32 seconds. 31 digital spot images submitted for interpretation ultimately demonstrates fusion 1st-3rd tarsometatarsal with multiple intact fixation plate/screws. Correlate with intraoperative findings/report.
== END 2021-10-19 10:59 | disposition home or self-care (01) ==
LOC: SDC 09:57 → MED SURG 20:28 → SDC 10-19 10:59
PROVIDERS: ATTEND Podiatrist Foot & Ankle Surgery
DX: S93.315A Dislocation of tarsal joint of left foot, initial encounter (principal); M19.072 Primary osteoarthritis, left ankle and foot; M25.375 Other instability, left foot; M21.6X2 Other acquired deformities of left foot; M79.672 Pain in left foot; M24.572 Contracture, left ankle; Z20.828 Contact with and (suspected) exposure to other viral communicable diseases
CPT/HCPCS: 0241U; 27687; 28730; 36415; 64486; 73630; 76000; 76937; 80053; 93005; 94760; 97161; G0378; 64450; 76942; C1713; J0690; J1100; J1885; J2270; J2405; J2704; J3010; A9270-GY

== ENCOUNTER 2022-04-28 06:05 | Day surgery (SDC) | payer BC ==
[2022-04-28] MEDS ORDERED: Lactated Ringers 1,000 ML IV ONE ×2 (06:19→06:59)
[2022-04-28] MEDS ORDERED: Xylocaine 1% Vial 30 ML PF IJ ONE (06:30)
[2022-04-28] MEDS ORDERED: Marcaine Mpf 0.5% Vial 30 Ml ONE (06:33)
[2022-04-28] MEDS ORDERED: Lactated Ringers 1,000 ML IV SCH (07:00)
[2022-04-28] MEDS ORDERED: KEFZOL 1 GM** 3 G in Sodium Chloride 0.9% 50 ML 50 ML IV ONE (07:03)
[2022-04-28 09:10] VITALS: O2SAT 99
--- NOTE | 2022-04-28 09:17 | XRAY ---
Indication: Left foot 1st metatarsal hardware removal. Intraoperative fluoroscopy provided for 15 seconds. 5 digital spot images submitted for interpretation ultimately demonstrates removal of distal most 1st metatarsal screw. Correlate with intraoperative findings/report.
[2022-04-28 09:22] VITALS: BP 118/68; PULSE 70
--- NOTE | 2022-04-28 11:46 | OP ---
SURGERY DATE: 04/28/2022 0756 PREOPERATIVE DIAGNOSES: 1) Left foot pain. 2) Orthopedic hardware in situ. POSTOPERATIVE DIAGNOSES: 1) Left foot pain. 2) Orthopedic hardware in situ. PROCEDURES: Removal of surgical screw deep left foot. SURGEON: Bryan Butler DPM. ENDBAND SIZER: None. ANESTHESIA: Local. See injectables for details. HEMOSTASIS: Pressure dressing. ESTIMATED BLOOD LOSS: Less than 2 cc. INJECTABLES: 30 cc of a 1:1 mixture of 1% lidocaine plain and 0.5% bupivacaine plain injected in a V block-type fashion surrounding the dorsal aspect of left surgical site. INDICATION FOR PROCEDURE: Carlotta is a very pleasant 62-year-old female well known to my service for an extraordinarily delayed Lisfranc injury to her left foot. The patient did wait approximately 20 years before having this injury addressed and as a result the decision was made to proceed with arthrodesis at the mid-foot. This was successful however following weightbearing, the patient has no noted some pain at the inner aspect of her arch. Close inspection of the radiographs does appear that there is a slightly elongated screw at the plantar aspect directly over the medial arch where her pain is correlating. This was correlated clinically and radiographically. At this time the patient is amenable to proceeding with removal of the screw. She understands all risks, complications and benefits of surgical intervention. No guarantees were provided as to the outcome and it is with that we decided to proceed. DESCRIPTION OF PROCEDURE AND FINDINGS: The patient was brought into the operating room and placed on the operating room table in the supine position. At this time the left lower extremity was prepped and draped in the typical sterile fashion and lowered onto the surgical field. At this time 30 cc block of a 1:1 mixture of 1% lidocaine plain and 0.5% bupivacaine plain was injected in a V block-type fashion to the left foot dorsally until the patient was no longer sensitive distal to this point. Following this under fluoroscopic guidance and on multiple views, the screw was identified. A small 1 cm incision was made over the dorsal aspect which was deepened along the plane down to the level of bone being careful not to damage any neurovascular structures along the way. The head of the screw was identified and was removed and handed off the field. At this time, copious amounts of sterile saline were utilized to flush the surgical site. At this time 3-0 Nylon was utilized to coapt the surgical skin edges in everted horizontal mattress-type fashion. A dressing consisting of Betadine, Adaptic, 4x4, Martell and Coban was applied to the dorsal aspect of the left foot. The patient was returned to the postoperative anesthesia care unit with vital signs stable and vascular status intact. The patient handled the anesthesia as well as the procedure without significant complication. Postoperative orders as indicated in the patient's discharge chart.
--- NOTE | 2022-04-28 13:53 | XRAY ---
15 seconds fluoroscopy time in surgery for removal of hardware screw left 1st metatarsal.
== END 2022-04-28 09:38 | disposition home or self-care (01) ==
LOC: SDC 06:05
PROVIDERS: ATTEND Podiatrist Foot & Ankle Surgery
DX: T85.848A Pain due to other internal prosthetic devices, implants and grafts, initial encounter (principal); M79.672 Pain in left foot
CPT/HCPCS: 20680; 73630; 76000; J0690; J2001

== ENCOUNTER 2024-05-15 07:17 | Emergency (ER) | payer BC ==
--- NOTE | 2024-05-15 07:21 | ERPHSYRPT ---
- History of Present Illness Time Seen by Provider: 05/15/24 07:20 Source: patient, family Exam Limitations: no limitations Physician History: This is an overweight 64-year-old white female patient who presents to the emergency department with a laceration just below her left knee. Patient's tetanus status is not up-to-date. Patient got tripped up with something on the floor at her home and fell onto her left knee. She has no chest pain. She is not dizzy she did not fall secondary to any syncope or dizziness. Occurred: just prior to arrival Reason for Fall: tripped Injuries/Pain Location: lower extremity (Just distal to the left knee) Loss of Consciousness: no loss of consciousness Quality: aching Severity of Pain-Max: mild Severity of Pain-Current: mild Modifying Factors: Improves With: nothing Associated Symptoms (Fall): denies symptoms Allergies/Adverse Reactions: No Known Drug Allergies Allergy (Verified 05/15/24 07:29) Home Medications: PHENobarbitaL [Phenobarbital] 3 tab PO DAILY 11/10/15 [History] Albuterol Sulfate [Proair Respiclick] 90 mcg IH Q4-6HPRN PRN 10/04/21 [History] Levetiracetam [Keppra] 500 mg PO DAILY 10/04/21 [History] Budesonide/Formoterol Fumarate [Budesonide-Formoterol 160-4.5] 2 puffs IH BID PRN 04/28/22 [History] Loratadine 10 mg [Claritin 10 mg] 1 tab PO DAILY 04/28/22 [History] Doxycycline Hyclate 100 mg [Vibramycin 100 MG] 100 mg PO BID 05/15/24 [History] Hx Tetanus, Diphtheria Vaccination/Date Given: Yes Hx Influenza Vaccination/Date Given: Yes Hx Pneumococcal Vaccination/Date Given: Yes Travel Risk - International Travel Have you traveled outside of the country in past 3 weeks: No - Emerging Infectious Disease Are you exhibiting symptoms associated with any current EIDs: No - Review of Systems Constitutional: No Symptoms Eyes: No Symptoms Ears, Nose, & Throat: No Symptoms Respiratory: No Symptoms Cardiac: No Symptoms Abdominal/Gastrointestinal: No Symptoms Genitourinary Symptoms: No Symptoms Musculoskeletal: Injury (Distal to the left knee) Skin: Other (Transverse skin laceration just distal to the left knee) Neurological: No Symptoms Psychological: No Symptoms Endocrine: No Symptoms Hematologic/Lymphatic: No Symptoms Immunological/Allergic: No Symptoms All Other Systems: Reviewed and Negative - Past Medical History Neurological History: Migraines, Seizures Respiratory History: Other Endocrine Medical History: No Pertinent History Musculoskeletal History: No Pertinent History Other Medical History: SYMBACORT, ALBUTERAL. - Past Surgical History Past Surgical History: Yes Neuro Surgical History: No Pertinent History Cardiac: No Pertinent History Respiratory: No Pertinent History, Other Gastrointestinal: No Pertinent History Genitourinary: No Pertinent History Musculoskeletal: No Pertinent History Female Surgical History: No Pertinent History Other Surgical History: MOLES REMOVED - Social History Smoking Status: Former smoker Exposure to second hand smoke: No - Nursing Vital Signs Nursing Vital Signs: Initial Vital Signs Temperature 97.7 F 05/15/24 07:30 Pulse Rate 88 05/15/24 07:30 Respiratory Rate 18 05/15/24 07:30 Blood Pressure 138/78 05/15/24 07:30 O2 Sat by Pulse Oximetry 99 05/15/24 07:30 Pain Scale Pain Intensity 1 - [place] Coma Score Best Eye Response (Mj): (4) open spontaneously Best Verbal Response ([place]): (5) oriented Best Motor Response ([place]): (6) obeys commands Mj Total: 15 - Physical Exam General Appearance: no apparent distress, alert, anxiety, obese Head Injury: no evidence of injury Eye Exam: PERRL/EOMI, eyes nml inspection ENT Exam: airway nml, nml ext.inspection Neck Exam: supple, trachea midline, full range of motion, normal alignment Respiratory/Chest Exam: No chest tenderness, No respiratory distress Cardiovascular Exam: normal heart sounds Gastrointestinal Exam: soft, normal bowel sounds, No tenderness Back Exam: normal inspection, normal range of motion, No CVA tenderness Extremity Exam: normal range of motion, lacerations (3.5 cm skin laceration transversely oriented just distal to the left knee) Neurologic Exam: alert, oriented x 3, cooperative, nurse discharge II-XII nml as tested, normal mood/affect, nml cerebellar function, nml station & gait, sensation nml Skin Exam: normal color, warm, dry, laceration (Skin laceration 3.5 cm. No active bleeding. No foreign body. See above extremity section) SpO2 Interpretation: normal O2 Delivery: Room Air Procedures - Laceration/Wound Repair Left Knee Time of Procedure: 08:00 Wound Location: Left, lower leg (Distal to the left knee) Wound Length (cm): 3.5 Wound's Depth, Shape: superficial Wound Explored: clean (Wound was explored to the base in a bloodless field. No foreign body noted) Irrigated: Yes Hibiclens Prep: Yes Anesthesia: 1% Lidocaine Volume Anesthetic (ccs): 8 Wound Repaired With: Aldair (8 skin aldair placed) Layer Closure?: No - Course Nursing assessment & vital signs reviewed: Yes Ordered Tests: Medication Summary Discontinued Medications Generic Name Dose Route Start Last Admin Trade Name Freq PRN Reason Stop Dose Admin Diphtheria/Tetanus/Acell Pertussis 0.5 ml 05/15/24 07:42 05/15/24 07:46 Tdap --Diph,Pertuss(Acell),Tet Vac/Pf 0.5 Ml Vial IM 05/15/24 07:43 0.5 ml .ONCE ONE Administration Diphtheria/Tetanus/Acell Pertussis Confirm 05/15/24 07:44 Tdap --Diph,Pertuss(Acell),Tet Vac/Pf 0.5 Ml Vial Administered 05/15/24 07:45 Dose 0.5 ml IM .STK-MED ONE Lidocaine HCl Confirm 05/15/24 07:39 Lidocaine Hcl 1% 20 Ml Mdv 20 Ml Ml Administered 05/15/24 07:40 Dose 1 ml .ROUTE .STK-MED ONE Lidocaine HCl 10 ml 05/15/24 07:44 05/15/24 07:51 Lidocaine Hcl 1% 20 Ml Mdv 20 Ml Ml IJ 05/15/24 07:45 10 ml STAT ONE Administration - Progress Progress: improved Progress Note: 05/15/24 08:16 My medical decision making and the assignment of low complexity of this patient's medical issue today is based on review of the patient's past medical history, review the patient's medication list, reviewed patient drug allergy list, history present illness and physical findings on examination. No radiographic or laboratory studies are necessary in this patient's workup. Differential diagnosis includes but is not limited to skin laceration left knee Counseled pt/family regarding: diagnosis, need for follow-up Medical Desision Making - Diagnostic Testing Diagnostic test were ordered, analyzed, and reviewed by me: No - Risk of complications Minimal Risk: Minimal risk of morbidity - Departure Departure Disposition: Home Clinical Impression: Laceration of skin of left knee Condition: Stable Critical Care Time: No Referrals: ANAI GE MD [Primary Care Provider] - Follow up/PCP as directed Additional Instructions: Keep the current dressing in place for 24 hours. After 24 hours you may remove the top dressing and rinse the site of the laceration repair with soapy water. Blot dry use a math and sciences department chair. After it is dried, placed a thin layer of antibiotic ointment of choice and cover with bandage. Staple removal in 8 to 10 days. If there are no contraindications you may use Tylenol and ibuprofen for pain control.
[2024-05-15] MEDS ORDERED: XYLOCAINE 1% HCL 20 ML MDV ONE (07:39)
[2024-05-15 07:42] VITALS: RESP 18; TEMP 97.7
[2024-05-15] MEDS ORDERED: Adacel Vial IM ONE (07:44)
[2024-05-15] MEDS: Adacel Vial IM ONE (07:46)
[2024-05-15] MEDS: XYLOCAINE 1% HCL 20 ML MDV IJ ONE (07:51)
[2024-05-15] MEDS: BACIGUENT PACKET TP ONE (08:21)
[2024-05-15] MEDS ORDERED: BACIGUENT PACKET ONE (08:21)
[2024-05-15 08:36] VITALS: BP 105/59; PULSE 70; O2SAT 99
== END 2024-05-15 08:37 | disposition home or self-care (01) ==
LOC: ED 07:17
DX: S81.012A Laceration without foreign body, left knee, initial encounter (principal); W01.0XXA Fall on same level from slipping, tripping and stumbling without subsequent striking against object, initial encounter; Z79.899 Other long term (current) drug therapy; Z23 Encounter for immunization
CPT/HCPCS: 12002; 90471; 90715; 99283; A9270-GY